=== PATIENT | male | born 1995 | race Caucasian/White ===

== ENCOUNTER 2019-02-28 19:37 | Emergency (ER) | payer OTHER ==
[~2019-02-28] VITALS: Wt 100.0 kg
--- NOTE | 2019-02-28 21:21 | ERD ---
ER Documentation Chief Complaint Chief Complaint right eye pain and swelling for the past few days. no distress. no fevers ROS All systems reviewed and are negative except as per history of present illness. Allergies Allergies: Coded Allergies: No Known Allergy (Unverified , 02/28/19) PMhx/Soc Medical and Surgical Hx: pt denies Medical Hx, pt denies Surgical Hx Hx Alcohol Use: No Hx Substance Use: No Hx Tobacco Use: No Smoking Status: Never smoker Physical Exam Vitals Vital Signs Date Temp Pulse Resp B/P (MAP) Pulse Ox O2 O2 Flow FiO2 Time Delivery Rate 02/28/19 98.0 75 20 141/87 98 19:39 (105) Physical Exam Const: No acute distress Head: Atraumatic Eyes: Normal Conjunctiva ENT: Normal External Ears, Nose and Mouth. Neck: Full range of motion. No meningismus. Resp: Clear to auscultation bilaterally Cardio: Regular rate and rhythm, no murmurs Abd: Soft, non tender, non distended. Normal bowel sounds Skin: No petechiae or rashes Back: No midline or flank tenderness Ext: No cyanosis, or edema Neur: Awake and alert Psych: Normal Mood and Affect Departure Diagnosis: Primary Impression: Hordeolum internum right upper eyelid Condition: Stable Additional Instructions: Thank you very much for allowing us to participate in your care. Your health and safety is our top priority at [facility]. The evaluation in the emergency department has been done to rule out an acute emergency. Chronic, ybh-rama-brbnqccdoxc conditions may have not been evaluated; therefore, you need to follow up with a primary care provider in the next 48h. If symptoms persist, worsen or new symptoms develop, then patient should return to the ED immediately. Call your primary care doctor TOMORROW for an appointment during the next 2-4 days and bring all the information provided. Have prescriptions filled and follow precisely the directions on the label. If the symptoms get worse and your provider is unavailable, return to the Emergency Department immediately. LADY HIDALGO MD Feb 28, 2019 21:21
[2019-02-28] MEDS ORDERED: IBUP-1561 PO (21:26)
[2019-02-28] MEDS ORDERED: POLY10DR19 RIGHT EYE (21:26)
[2019-02-28] MEDS ORDERED: ACET325T33 PO (21:26)
[2019-02-28] MEDS ORDERED: DEXA5DRO11 RIGHT EYE (21:26)
[2019-02-28 21:48] VITALS: BP 132/78; PULSE 77; RESP 20
== END 2019-02-28 21:48 | disposition home or self-care (01) ==
LOC: FTE 19:37
DX: H00.021 Hordeolum internum right upper eyelid (principal)
CPT/HCPCS: 99283

== ENCOUNTER 2019-03-25 12:08 | Emergency (ER) | payer SELFPAY ==
[~2019-03-25] VITALS: Ht 175.3 cm; Wt 100.0 kg
[~2019-03-25 12:08] MED LIST: ACET325T33 PO; DEXA5DRO11 RIGHT EYE; HC30CR25 TOP; IBUP-1561 PO; POLY10DR19 RIGHT EYE
[2019-03-25 12:13] VITALS: BP 144/83; PULSE 85; RESP 18; Ht 175.3 cm; Wt 100.0 kg
--- NOTE | 2019-03-25 12:25 | ERD ---
ER Documentation Chief Complaint Chief Complaint RIGHT EYE LID SWELLING, HERE 3 WEEKS AGO. NO IMPROVEMENT HPI 23-year-old male, presents the emergency department, complaining of worsening of right upper eyelid pain, edema and induration. The patient was seen here 3 weeks ago for an a stye, that according to the patient, got better with the antibiotics but 1 week ago started to became worse. He denies blurred vision, no nausea or vomiting, no ocular discharge. ROS All systems reviewed and are negative except as per history of present illness. Medications Home Meds Active Scripts Hydrocortisone* Topical (Hydrocortisone* Topical) 2.5%-28.3 Gm Cream..g., 1 APPLIC TOP BID for 7 Days, #1 TUB Prov:LADY HIDALGO MD 03/25/19 Ibuprofen* (Motrin*) 400 Mg Tab, 400 MG PO Q8 PRN for PAIN AND OR ELEVATED TEMP, #20 TAB Prov:LADY HIDALGO MD 02/28/19 Acetaminophen* (Tylenol*) 325 Mg Tablet, 2 TAB PO Q6 PRN for PAIN AND OR ELEVATED TEMP, #20 TAB Prov:LADY HIDALGO MD 02/28/19 Dexamethasone* Ophth (Dexamethasone* Ophth) 0.1%-5 Ml Drops, 1 DROP RIGHT EYE Q4 for 5 Days, EA Prov:LADY HIDALGO MD 02/28/19 Polymyxin B Sulfate-TMP* (Polymyxin B-TMP Eye Drops*) 10 Ml Drops, 1 DROP RIGHT EYE QID for 7 Days, EA Prov:LADY HIDALGO MD 02/28/19 Allergies Allergies: Coded Allergies: No Known Allergy (Unverified , 02/28/19) PMhx/Soc Medical and Surgical Hx: pt denies Medical Hx Hx Alcohol Use: No Hx Substance Use: No Hx Tobacco Use: No FmHx Family History: No diabetes, No coronary disease Physical Exam Vitals Vital Signs Date Temp Pulse Resp B/P (MAP) Pulse Ox O2 O2 Flow FiO2 Time Delivery Rate 03/25/19 98.3 85 18 144/83 99 12:13 (103) Physical Exam Const: No acute distress Head: Atraumatic Eyes: Right upper eyelid with well-defined 0.8 cm nodule, tender, indurated, no fluctuance. ENT: Normal External Ears, Nose and Mouth. Neck: Full range of motion. No meningismus. Resp: Clear to auscultation bilaterally Cardio: Regular rate and rhythm, no murmurs Abd: Soft, non tender, non distended. Normal bowel sounds Skin: No petechiae or rashes Back: No midline or flank tenderness Ext: No cyanosis, or edema Neur: Awake and alert Psych: Normal Mood and Affect Procedures/MDM Differential diagnosis include but not limited to: infection bacterial/viral/fungal, iritis, scleritis, corneal abrasion, allergies, foreign body, glaucoma. Physical examination and clinical presentation consistent most likely with chalazion of the right upper eyelid During the ED course the patient remained stable, no new complaints. Clinical impression discussed with patient who agrees with management. The patient is stable to be treated outpatient and will be discharged home; Some side effects of prescribed medications (headache, rash, nausea, vomiting, diarrhea, interactions with other medications) were reviewed. The patient was instructed to follow up with the primary care provider in the next 48h. If symptoms persist, worsen or new symptoms develop, then patient should return to the ED immediately. Disclaimer: Inadvertent spelling and grammatical errors are likely due to EHR/dictation software use and do not reflect on the overall quality of patient care. Also, please note that the electronic time recorded on this note does not necessarily reflect the actual time of the patient encounter. Departure Diagnosis: Primary Impression: Chalazion right upper eyelid Condition: Stable Additional Instructions: Thank you very much for allowing us to participate in your care. Your health and safety is our top priority at [facility]. The evaluation in the emergency department has been done to rule out an acute emergency. Chronic, ffa-stuw-qxrjaxnbwiu conditions may have not been evaluated; therefore, you need to follow up with a primary care provider in the next 48h. If symptoms persist, worsen or new symptoms develop, then patient should return to the ED immediately. Call your primary care doctor TOMORROW for an appointment during the next 2-4 days and bring all the information provided. Have prescriptions filled and follow precisely the directions on the label. If the symptoms get worse and your provider is unavailable, return to the Emergency Department immediately. LADY HIDALGO MD Mar 25, 2019 12:25
== END 2019-03-25 12:25 | disposition home or self-care (01) ==
LOC: E/R 12:08
DX: H00.11 Chalazion right upper eyelid (principal)
CPT/HCPCS: 99283